=== PATIENT | female | born 1985 ===

== ENCOUNTER 2019-02-16 14:00 | Outpatient (CLI) | payer OTHER | END 2019-02-16 14:01 | disposition home or self-care (01) | LOC: C.LAB 14:00 | DX: Z34.00 Encounter for supervision of normal first pregnancy, unspecified trimester (principal) ==

== ENCOUNTER 2019-03-16 10:01 | Outpatient (CLI) | payer OTHER | END 2019-03-16 10:02 | disposition home or self-care (01) | LOC: C.LAB 10:01 | DX: Z34.00 Encounter for supervision of normal first pregnancy, unspecified trimester (principal) ==